=== PATIENT | female | born 1970 | race Hispanic/Latino ===

== ENCOUNTER 2017-10-24 17:31 | Emergency (ER) | payer SELFPAY ==
[2017-10-24] MEDS ORDERED: ONDANSETRON 4 MG/2 ML VIAL ONE (18:32)
[2017-10-24] MEDS ORDERED: LOPERAMIDE HCL 2 MG CAPSULE ONE (18:32)
[2017-10-24] MEDS ORDERED: NA CHLORIDE 0.9% 1,000 ML ONE (18:33)
[2017-10-24 19:10] LABS: Urine Blood NEGATIVE (NEG); Urine Glucose NEGATIVE (NEG); Urine Protein TRACE (NEG); Urine Specific Gravity 1.015 (1.005-1.030)
[2017-10-24 19:17] LABS: Urine Bacteria <20 /HPF (<20); Urine Culture Reflex Order REFLEXED; Urine RBC <5 /HPF (NONE SEEN)
[2017-10-24 19:39] LABS: Absolute Lymphocytes (CBC) 1.1 K/uL (0.7-4.9); Absolute Monocytes 0.6 K/uL (0.1-1.3); Absolute Neutrophil 7.2 K/uL (1.8-8.0); Basophils % 0.2 % (0-1.3); Eosinophils % 0.9 % (0-4.4); Hematocrit 40.5 % (36.0-45.0); Lymphocytes % 12.4 % (15.3-44.8); MCH 29.7 pg (27.0-35.0); MCV 88.3 fL (80-100); MPV 8.3 fL (7.6-11.3); Monocytes % 6.7 % (3.3-12.3); RBC Red Blood Cell Count 4.59 M/uL (3.86-4.86)
[2017-10-24] MEDS ORDERED: IBUPROFEN 400 MG TAB ONE (19:41)
[2017-10-24] MEDS ORDERED: IBUPROFEN 200 MG TAB PO ONE (19:41)
[2017-10-24 19:47] LABS: Bicarbonate 24 mEq/L (21-31); Glucose Level 106 mg/dL (65-120); Lipase 15 U/L (22-51); Potassium 3.6 mEq/L (3.6-5.0); Sodium Level 135 mEq/L (135-145)
[2017-10-24 19:54] LABS: ALT/SGPT 94 IU/L (10-60); AST/SGOT 87 IU/L (10-42); Albumin 3.4 g/dL (3.2-5.5); Alkaline Phosphatase 70 IU/L (42-121); Amylase Level 26 U/L (28-100); BUN Blood Urea Nitrogen 10 mg/dL (6-20); Bilirubin Direct 0.1 mg/dL (0-0.2); Bilirubin Total 0.6 mg/dL (0.3-1.2); Protein, Total 7.4 g/dL (6.0-8.3)
[2017-10-24 20:41] LABS: Blood Morphology Comment NOT SEEN (NOT SEEN); Platelet Estimate ADEQ; Urine White Blood Cell Casts OK
--- NOTE | 2017-10-24 20:47 | ER ---
Nurse's Notes [facility] Name: Alda Maldonado Age: 47 yrs Sex: Female : 1970 Arrival Date: 10/24/2017 Time: 17:34 Bed 13 Private MD: Diagnosis: Other viral enteritis Presentation: 10/24 17:39 Presenting complaint: Patient states: abd pain, back pain, N/V/D since yesterday. la1 Transition of care: patient was not received from another setting of care. Onset of symptoms was October 24, 2017. Initial Sepsis Screen: Does the patient meet any 2 criteria? Temp <36.0*C (96.8*F)) or > 38.3*C (100.4*F). Does the patient have a suspected source of infection? No. Patient's initial sepsis screen is negative. Care prior to arrival: None. 17:39 Method Of Arrival: Ambulatory la1 17:39 Acuity: SHELDON 3 la1 Historical: - Allergies: 17:40 No Known Allergies; la1 - Home Meds: 21:13 Fioricet 50-300-40 mg Oral cap 1 cap every 4 hours [Active]; tl2 - PMHx: 17:40 Migraines; la1 - Immunization history:: Adult Immunizations up to date. - Social history:: Smoking status: Patient/guardian denies using tobacco. - Family history:: not pertinent. - Hospitalizations: : No recent hospitalization is reported. - History obtained from: daughter. Screenin:08 Abuse screen: Denies threats or abuse. Denies injuries from another. Nutritional ph screening: No deficits noted. Tuberculosis screening: No symptoms or risk factors identified. Fall Risk None identified. No fall in past 12 months (0 pts). Assessment: 18:55 General: Appears in no apparent distress. comfortable, well groomed, Behavior is calm, ph cooperative, appropriate for age. Pain: Complains of pain in umbilical area. Neuro: Level of Consciousness is awake, alert, obeys commands, Oriented to person, place, time, situation. Cardiovascular: Capillary refill < 3 seconds Patient's skin is warm and dry. Respiratory: Airway is patent Respiratory effort is even, unlabored. GI: Abdomen is round non-distended, Bowel sounds present X 4 quads. Abd is soft and non tender X 4 quads. Reports diarrhea, nausea, vomiting, since yesterday. Derm: Skin is intact, is healthy with good turgor, Skin is pink, warm \T\ dry. Musculoskeletal: Circulation, motion, and sensation intact. 20:06 Reassessment: Patient appears in no apparent distress at this time. Patient and/or tl2 family updated on plan of care and expected duration. Pain level reassessed. Patient is alert, oriented x 3, equal unlabored respirations, skin warm/dry/pink. Awaiting lab results and further orders. 21:11 Reassessment: Patient appears in no apparent distress at this time. Patient and/or tl2 family updated on plan of care and expected duration. Pain level reassessed. Patient is alert, oriented x 3, equal unlabored respirations, skin warm/dry/pink. Pt verbalized understanding of discharge instructions, need for follow up and prescription usage Patient states feeling better. Vital Signs: 17:40 BP 126 / 88; Pulse 81; Resp 16; Temp 100.0(TE); Pulse Ox 100% on R/A; Weight 58.97 kg; la1 Height 4 ft. 11 in. (149.86 cm); 19:02 BP 125 / 70; Pulse 85; Resp 18; Pulse Ox 98% ; ph 20:05 BP 120 / 69; Pulse 88; Resp 18; Pulse Ox 100% on R/A; tl2 21:11 BP 111 / 74; Pulse 83; Resp 18; Pulse Ox 99% on R/A; Pain 0/10; tl2 17:40 Body Mass Index 26.26 (58.97 kg, 149.86 cm) la1 ED Course: 17:34 Patient arrived in ED. as 17:40 Triage completed. la1 17:40 Arm band placed on right wrist. la1 18:03 Mireya Brambila FNP is PHCP. kav 18:03 Reji Lamb MD is Attending Physician. kav 18:07 Sue Holland, CHRIS is Primary Nurse. ph 19:02 Patient has correct armband on for positive identification. Bed in low position. Call ph light in reach. Side rails up X 1. Pulse ox on. NIBP on. Warm blanket given. 19:20 Inserted saline lock: 22 gauge in left antecubital area, using aseptic technique. Blood tl2 collected. 21:11 No provider procedures requiring assistance completed. tl2 21:12 IV discontinued, intact, bleeding controlled, No redness/swelling at site. Pressure tl2 dressing applied. Administered Medications: 18:55 Drug: NS 0.9% 1000 ml Route: IV; Rate: 1 bolus; Site: right antecubital; ph 21:15 Follow up: IV Status: Completed infusion; IV Intake: 1000ml tl2 18:55 Drug: Imodium A-D 4 mg Route: PO; ph 21:13 Follow up: Response: Marked relief of symptoms tl2 18:55 Drug: Zofran 4 mg Route: IVP; Site: right antecubital; ph 21:14 Follow up: Response: No adverse reaction; Nausea is decreased tl2 19:47 Drug: Ibuprofen 600 mg Route: PO; tl2 21:14 Follow up: Response: No adverse reaction; Pain is decreased tl2 Intake: 21:15 IV: 1000ml; Total: 1000ml. tl2 Outcome: 20:46 Discharge ordered by . khadar 21:12 Discharged to home ambulatory, with family. tl2 21:12 Condition: stable 21:12 Discharge instructions given to patient, family, Instructed on discharge instructions, follow up and referral plans. medication usage, Demonstrated understanding of instructions, follow-up care, medications, Prescriptions given X 1. 21:16 Patient left the ED. tl2 Signatures: Mireya Brambila, SPIRAL WINDING MACHINE HELPER Kaila Sanders Lee, RN RN la1 Sue Holland RN RN Carli Brody RN RN tl2
--- NOTE | 2017-10-24 20:47 | EDPHYS ---
Physician Documentation [facility] Name: Alda Maldonado Age: 47 yrs Sex: Female : 1970 Arrival Date: 10/24/2017 Time: 17:34 Bed 13 Private MD: ED Physician Reji Lamb HPI: 10/24 18:17 This 47 yrs old Female presents to ER via Ambulatory with complaints of kav Abdominal Pain. 18:41 The patient presents with abdominal pain that is diffuse. Onset: The symptoms/episode kav began/occurred acutely, yesterday. The symptoms do not radiate. Associated signs and symptoms: Pertinent positives: diarrhea, fever, nausea, Pertinent negatives: vomiting. The symptoms are described as crampy. Modifying factors: The symptoms are alleviated by nothing, the symptoms are aggravated by food. Severity of pain: At its worst the pain was mild just prior to arrival. The patient has not recently seen a physician. patient presents with c/o diffuse crampy abdominal pain x 2 days with associated frequent diarrhea x 10 today,h/a and nausea. she reports taking no anti-diarrheal or nausea medication. she did take tyleonol \T\ 1700 for c/o h/a. Historical: - Allergies: 17:40 No Known Allergies; la1 - Home Meds: 21:13 Fioricet 50-300-40 mg Oral cap 1 cap every 4 hours [Active]; tl2 - PMHx: 17:40 Migraines; la1 - Immunization history:: Adult Immunizations up to date. - Social history:: Smoking status: Patient/guardian denies using tobacco. - Family history:: not pertinent. - Hospitalizations: : No recent hospitalization is reported. - History obtained from: daughter. ROS: 18:41 Eyes: Negative for injury, pain, redness, and discharge, ENT: Negative for injury, kav pain, and discharge, Neck: Negative for injury, pain, and swelling, Cardiovascular: Negative for chest pain, palpitations, and edema, Respiratory: Negative for shortness of breath, cough, wheezing, and pleuritic chest pain, Back: Negative for injury and pain, : Negative for injury, bleeding, discharge, and swelling, MS/Extremity: Negative for injury and deformity, Skin: Negative for injury, rash, and discoloration, Neuro: Negative for headache, weakness, numbness, tingling, and seizure, Psych: Negative for depression, anxiety, suicide ideation, homicidal ideation, and hallucinations, Allergy/Immunology: Negative for hives, rash, and allergies, Endocrine: Negative for neck swelling, polydipsia, polyuria, polyphagia, and marked weight changes, Hematologic/Lymphatic: Negative for swollen nodes, abnormal bleeding, and unusual bruising. 18:41 Constitutional: Positive for chills, fever, Negative for body aches, fatigue, malaise, weight loss. 18:41 Abdomen/GI: Positive for abdominal pain, nausea, diarrhea, Negative for vomiting, abdominal distension, dysphagia, hematemesis, black/tarry stool, rectal bleeding. Exam: 18:41 Head/Face: Normocephalic, atraumatic. Eyes: Pupils equal round and reactive to light, kav extra-ocular motions intact. Lids and lashes normal. Conjunctiva and sclera are non-icteric and not injected. Cornea within normal limits. Periorbital areas with no swelling, redness, or edema. ENT: Nares patent. No nasal discharge, no septal abnormalities noted. Tympanic membranes are normal and external auditory canals are clear. Oropharynx with no redness, swelling, or masses, exudates, or evidence of obstruction, uvula midline. Mucous membranes moist. Neck: Trachea midline, no thyromegaly or masses palpated, and no cervical lymphadenopathy. Supple, full range of motion without nuchal rigidity, or vertebral point tenderness. No Meningismus. Chest/axilla: Normal chest wall appearance and motion. Nontender with no deformity. No lesions are appreciated. Cardiovascular: Regular rate and rhythm with a normal S1 and S2. No gallops, murmurs, or rubs. Normal PMI, no JVD. No pulse deficits. Respiratory: Lungs have equal breath sounds bilaterally, clear to auscultation and percussion. No rales, rhonchi or wheezes noted. No increased work of breathing, no retractions or nasal flaring. Back: No spinal tenderness. No costovertebral tenderness. Full range of motion. Female : Normal external genitalia. Skin: Warm, dry with normal turgor. Normal color with no rashes, no lesions, and no evidence of cellulitis. MS/ Extremity: Pulses equal, no cyanosis. Neurovascular intact. Full, normal range of motion. Neuro: Awake and alert, GCS 15, oriented to person, place, time, and situation. Cranial nerves II-XII grossly intact. Motor strength 5/5 in all extremities. Sensory grossly intact. Cerebellar exam normal. Normal gait. Psych: Awake, alert, with orientation to person, place and time. Behavior, mood, and affect are within normal limits. 18:41 Abdomen/GI: Inspection: abdomen appears normal, Bowel sounds: active, Palpation: soft, mild abdominal tenderness, in all quadrants. Vital Signs: 17:40 BP 126 / 88; Pulse 81; Resp 16; Temp 100.0(TE); Pulse Ox 100% on R/A; Weight 58.97 kg; la1 Height 4 ft. 11 in. (149.86 cm); 19:02 BP 125 / 70; Pulse 85; Resp 18; Pulse Ox 98% ; ph 20:05 BP 120 / 69; Pulse 88; Resp 18; Pulse Ox 100% on R/A; tl2 21:11 BP 111 / 74; Pulse 83; Resp 18; Pulse Ox 99% on R/A; Pain 0/10; tl2 17:40 Body Mass Index 26.26 (58.97 kg, 149.86 cm) la1 MDM: 18:03 Patient medically screened. kav 18:41 Data reviewed: vital signs, nurses notes. kav 20:43 Data reviewed: lab test result(s). 10/24 18:19 Order name: Amylase, Serum; Complete Time: 20:43 [facility] 10/24 18:19 Order name: Basic Metabolic Panel; Complete Time: 20:43 [facility] 10/24 18:19 Order name: CBC with Diff; Complete Time: 20:43 v 10/24 18:19 Order name: Creatinine for Radiology; Complete Time: 19:51 kav 10/24 18:19 Order name: Hepatic Function; Complete Time: 20:43 [facility] 10/24 18:19 Order name: Lipase; Complete Time: 20:43 kav 10/24 18:19 Order name: Urine Microscopic Only; Complete Time: 19:51 kav 10/24 18:58 Order name: Urine Dipstick--Ancillary (enter results); Complete Time: 19:51 10/24 18:58 Order name: Urine --Ancillary (enter results); Complete Time: 19:51 eb 10/24 19:18 Order name: Urine Culture EDNY 10/24 19:46 Order name: CBC Smear Scan; Complete Time: 20:43 EDNY 10/24 18:19 Order name: IV Saline Lock; Complete Time: 18:55 kav 10/24 18:19 Order name: Labs collected and sent; Complete Time: 18:55 kav 10/24 18:19 Order name: Urine Dipstick-Ancillary (obtain specimen); Complete Time: 18:28 kav 10/24 19:05 Order name: Labs - recollect needed; Complete Time: 19:25 em1 10/24 19:52 Order name: VS Recheck; Complete Time: 20:05 kav Administered Medications: 18:55 Drug: NS 0.9% 1000 ml Route: IV; Rate: 1 bolus; Site: right antecubital; ph 21:15 Follow up: IV Status: Completed infusion; IV Intake: 1000ml tl2 18:55 Drug: Imodium A-D 4 mg Route: PO; ph 21:13 Follow up: Response: Marked relief of symptoms tl2 18:55 Drug: Zofran 4 mg Route: IVP; Site: right antecubital; ph 21:14 Follow up: Response: No adverse reaction; Nausea is decreased tl2 19:47 Drug: Ibuprofen 600 mg Route: PO; tl2 21:14 Follow up: Response: No adverse reaction; Pain is decreased tl2 Disposition: 10/24/17 20:46 Discharged to Home. Impression: Other viral enteritis. - Condition is Stable. - Discharge Instructions: Food Choices to Help Relieve Diarrhea, Adult, Viral Gastroenteritis, [id number], Diarrhea, [id number]. - Prescriptions for Zofran 4 mg Oral Tablet - take 1 tablet by ORAL route every 12 hours As needed; 6 tablet. - Medication Reconciliation Form, Thank You Letter, Antibiotic Education, Prescription Opioid Use form. - Follow up: Private Physician; Reason: If symptoms return, Recheck today's complaints, Continuance of care, Re-evaluation by your physician. - Problem is new. - Symptoms have improved. - Notes: Over The Counter Imodium as needed and as directed for diarrhea ensure adequate hydration Signatures: Dispatcher [employer] EDNY Mireya Brambila, BRONZER BRONZER Jj Lazcano em1 Crispin Gilmore, RN RN la1 Sue Holland, RN RN ph Carli Brody RN RN tl2 Corrections: (The following items were deleted from the chart) 18:56 18:20 Creatinine for Radiology+C.LAB.BRZ ordered. EDMS EDMS
== END 2017-10-24 21:16 | disposition home or self-care (01) ==
LOC: ER 17:31
DX: A08.4 Viral intestinal infection, unspecified (principal); Z88.6 Allergy status to analgesic agent
CPT/HCPCS: 36415; 80048; 80076; 81003; 81015; 81025; 82150; 83690; 85025; 87086; 87088; 96361; 96374; 99284; J2405; J7030

== ENCOUNTER 2018-03-14 00:50 | Emergency (ER) | payer SELFPAY ==
--- NOTE | 2018-03-14 01:39 | EDPHYS ---
Physician Documentation [facility] Name: Alda Maldonado Age: 48 yrs Sex: Female : 1970 Arrival Date: 03/14/2018 Time: 00:54 Bed 5 Private MD: ED Physician Reji Lamb HPI: 03/14 01:31 This 48 yrs old Female presents to ER via Ambulatory with complaints of Rash. cp 01:31 The patient's rash thought to be caused by an unknown cause. The rash is located on the cp chest, left arm and neck. The rash can be described as erythematous, urticarial. Onset: The symptoms/episode began/occurred 1 week(s) ago. Associated signs and symptoms: Pertinent positives: burning sensation, itching, Pertinent negatives: difficulty breathing, fever, swelling of lips, swelling of throat, swelling of tongue, wheezing. Severity of symptoms: in the emergency department the symptoms are unchanged. Treatment given at home: Benadryl. 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 - Social history:: Smoking status: Patient/guardian denies using tobacco. - Ebola Screening: : No symptoms or risks identified at this time. ROS: 01:32 Eyes: Negative for injury, pain, redness, and discharge. cp 01:32 Constitutional: Negative for body aches, chills, fever, poor PO intake. 01:32 ENT: Negative for drainage from ear(s), ear pain, sore throat, difficulty swallowing, difficulty handling secretions. 01:32 Cardiovascular: Negative for chest pain, palpitations. 01:32 Respiratory: Negative for cough, shortness of breath, wheezing. 01:32 : Negative for urinary symptoms. 01:32 Skin: Positive for rash, of the neck and left arm and chest. 01:32 All other systems are negative. Exam: 01:34 Head/Face: Normocephalic, atraumatic. cp 01:34 Constitutional: The patient appears in no acute distress, alert, awake, non-toxic, well developed, well nourished. 01:34 Eyes: Periorbital structures: appear normal, Conjunctiva: normal, no exudate, no injection, Lids and lashes: appear normal, bilaterally. 01:34 ENT: External ear(s): are unremarkable, Nose: is normal, Mouth: Lips: moist, Oral mucosa: moist, Posterior pharynx: is normal, airway is patent. 01:34 Chest/axilla: Palpation: is normal. 01:34 Cardiovascular: Rate: normal, Rhythm: regular. 01:34 Respiratory: the patient does not display signs of respiratory distress, Respirations: normal, no use of accessory muscles, no retractions, no splinting, no tachypnea, labored breathing, is not present, Breath sounds: are clear throughout, no decreased breath sounds, no stridor, no wheezing. 01:34 Abdomen/GI: Inspection: abdomen appears normal. 01:34 Skin: consistent with urticaria, on the neck and left arm and chest. Vital Signs: 01:07 BP 145 / 96; Pulse 88; Resp 16; Temp 98.7(O); Pulse Ox 96% on R/A; Weight 63.5 kg; tl2 Height 4 ft. 11 in. (149.86 cm); Pain 0/10; 01:07 Body Mass Index 28.28 (63.50 kg, 149.86 cm) tl2 MDM: 01:10 Patient medically screened. cp 01:35 Differential diagnosis: allergic reaction, contact dermatitis, cellulitis. cp 01:37 Data reviewed: vital signs, nurses notes. cp 01:37 Counseling: I had a detailed discussion with the patient and/or guardian regarding: the cp historical points, exam findings, and any diagnostic results supporting the discharge/admit diagnosis, the need for outpatient follow up, a family practitioner, to return to the emergency department if symptoms worsen or persist or if there are any questions or concerns that arise at home. Administered Medications: No medications were administered Disposition: 03/14/18 01:38 Discharged to Home. Impression: Urticaria, unspecified. - Condition is Stable. - Discharge Instructions: Hives. - Prescriptions for Pepcid 20 mg Oral Tablet - take 1 tablet by ORAL route every 12 hours for 10 days; 20 tablet. Triamcinolone Acetonide 0.5 % Topical Cream - apply 1 application by TOPICAL route 2 times per day As needed apply to areas of rash except face as directed; 1 tube. Prednisone 20 mg Oral Tablet - take 2 tablet by ORAL route once daily for 5 days; 10 tablet. - Medication Reconciliation Form, Thank You Letter, Antibiotic Education, Prescription Opioid Use form. - Follow up: Private Physician; When: 5 - 6 days; Reason: rash continues. - Problem is new. - Symptoms are unchanged. Addendum: 03/20/2018 12:05 Co-signature as Attending Physician, Reji Lamb MD Available for consultation at p s1 all times. . Signatures: Meagan Kraft RN RN tl1 Candido Hernandez PA PA cp Carli Brody RN RN tl2 Reji Lamb MD MD ps1 Corrections: (The following items were deleted from the chart) 03/14 01:46 01:38 03/14/2018 01:38 Discharged to Home. Impression: Urticaria, unspecified. tl1 Condition is Stable. Forms are Medication Reconciliation Form, Thank You Letter, Antibiotic Education, Prescription Opioid Use. Follow up: Private Physician; When: 5 - 6 days; Reason: rash continues. Problem is new. Symptoms are unchanged. cp
--- NOTE | 2018-03-14 01:39 | ER ---
Nurse's Notes [facility] Name: Alda Maldonado Age: 48 yrs Sex: Female : 1970 Arrival Date: 03/14/2018 Time: 00:54 Bed 5 Private MD: Diagnosis: Urticaria, unspecified Presentation: 03/14 01:05 Presenting complaint: Patient states: Rash for 1 week on left arm, neck, and chest. tl2 Reports itching. 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 Transition of care: patient was not received from another setting of care. Onset of symptoms was March 07, 2018. Risk Assessment: Do you want to hurt yourself or someone else? Patient reports no desire to harm self or others. Initial Sepsis Screen: Does the patient meet any 2 criteria? No. Patient's initial sepsis screen is negative. Does the patient have a suspected source of infection? No. Patient's initial sepsis screen is negative. Care prior to arrival: Medication(s) given: benadryl. 01:05 Method Of Arrival: Ambulatory tl2 01:05 Acuity: SHELDON 4 tl2 Triage Assessment: 01:07 General: Appears in no apparent distress. uncomfortable, Behavior is calm, cooperative, tl2 appropriate for age. Pain: Denies pain. Neuro: Level of Consciousness is awake, alert, obeys commands, Oriented to person, place, time, situation. Respiratory: Airway is patent Respiratory effort is even, unlabored, Respiratory pattern is regular, symmetrical. Derm: Skin is pink, warm \T\ dry. Rash noted that is itchy, red, on left arm, neck, chest. 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 - Social history:: Smoking status: Patient/guardian denies using tobacco. - Ebola Screening: : No symptoms or risks identified at this time. Screenin:09 Abuse screen: Denies threats or abuse. Nutritional screening: No deficits noted. tl2 Tuberculosis screening: No symptoms or risk factors identified. Fall Risk None identified. Assessment: 01:43 General: Appears in no apparent distress. Behavior is calm, cooperative, appropriate tl1 for age. Pain: Denies pain. Neuro: Level of Consciousness is awake, alert, obeys commands, Oriented to person, place, time, situation. Cardiovascular: Denies chest pain. Respiratory: Airway is patent Trachea midline Respiratory effort is even, unlabored, Breath sounds are clear bilaterally. GI: Abdomen is non-distended, Abd is soft and non tender X 4 quads. : No signs and/or symptoms were reported regarding the genitourinary system. EENT: No signs and/or symptoms were reported regarding the EENT system. Derm: Rash noted that is itchy, red, urticaria, on neck and left arm and chest Reports itching. Musculoskeletal: No signs and/or symptoms reported regarding the musculoskeletal system. Vital Signs: 01:07 BP 145 / 96; Pulse 88; Resp 16; Temp 98.7(O); Pulse Ox 96% on R/A; Weight 63.5 kg; tl2 Height 4 ft. 11 in. (149.86 cm); Pain 0/10; 01:07 Body Mass Index 28.28 (63.50 kg, 149.86 cm) tl2 ED Course: 00:54 Patient arrived in ED. es 01:06 Triage completed. tl2 01:07 Arm band placed on right wrist. tl2 01:09 Patient has correct armband on for positive identification. Bed in low position. Call tl2 light in reach. Side rails up X 1. 01:10 Candido Hernandez PA is PHCP. cp 01:10 Reji Lamb MD is Attending Physician. cp 01:45 No provider procedures requiring assistance completed. Patient did not have IV access tl1 during this emergency room visit. 01:46 Meagan Kraft, CHRIS is Primary Nurse. tl1 Administered Medications: No medications were administered Outcome: 01:38 Discharge ordered by . cp 01:45 Discharged to home ambulatory, with family. tl1 01:45 Condition: good 01:45 Discharge instructions given to patient, family, Instructed on discharge instructions, follow up and referral plans. medication usage, Demonstrated understanding of instructions, follow-up care, medications, Prescriptions given X 3. 01:46 Patient left the ED. tl1 Signatures: [place], Shelbie es [place], Meagan, RN RN tl1 Candido Hernandez PA PA cp Knox, Taylor, RN RN tl2
== END 2018-03-14 01:46 | disposition home or self-care (01) ==
LOC: ER 00:50
DX: L50.9 Urticaria, unspecified (principal)
CPT/HCPCS: 99282

== ENCOUNTER 2019-03-10 22:35 | Emergency (ER) | payer SELFPAY ==
[2019-03-10 23:31] LABS: Urine Specific Gravity 1.025 (1.005-1.030)
[2019-03-10 23:32] LABS: Urine Blood NEGATIVE (NEG); Urine Glucose NEGATIVE (NEG); Urine Protein NEGATIVE (NEG); Urine Specific Gravity 1.025 (1.005-1.030)
[2019-03-10 23:33] LABS: Calcium Oxalate Crystals- Ur MANY (NONE SEEN); Urine Bacteria <20 /HPF (<20); Urine Culture Reflex Order REFLEXED; Urine RBC NONE SEEN /HPF (NONE SEEN)
[2019-03-10 23:38] LABS: Absolute Lymphocytes (CBC) 3.3 K/uL (0.7-4.9); Basophils % 0.5 % (0-1.3); Hematocrit 41.5 % (36.0-45.0); Lymphocytes % 30.7 % (15.3-44.8); MPV 8.8 fL (7.6-11.3); RBC Red Blood Cell Count 4.64 M/uL (3.86-4.86)
[2019-03-10 23:51] LABS: BUN Blood Urea Nitrogen 18 mg/dL (7-18); Bicarbonate 29 mmol/L (21-32); Glucose Level 97 mg/dL (74-106); Potassium 3.9 mmol/L (3.5-5.1); Sodium Level 142 mmol/L (136-145)
--- NOTE | 2019-03-11 02:39 | ER ---
Nurse's Notes [facility] [place] Name: Alda Maldonado Age: 49 yrs Sex: Female : 1970 Arrival Date: 03/10/2019 Time: 22:40 Bed 7 Private MD: Diagnosis: Lower abdominal pain, unspecified Presentation: 03/10 22:44 Presenting complaint: Patient states: LLQ abdominal pain since yesterday; States "I can lp1 feel a ball there"; Denies any N/V/D. Transition of care: patient was not received from another setting of care. Onset of symptoms was March 10, 2019. Risk Assessment: Do you want to hurt yourself or someone else? Patient reports no desire to harm self or others. Initial Sepsis Screen: Does the patient meet any 2 criteria? No. Patient's initial sepsis screen is negative. Does the patient have a suspected source of infection? No. Patient's initial sepsis screen is negative. Care prior to arrival: None. 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 - Social history:: Smoking status: Patient/guardian denies using tobacco. - Ebola Screening: : No symptoms or risks identified at this time. Screenin:11 Abuse screen: Denies threats or abuse. Denies injuries from another. Nutritional ak1 screening: No deficits noted. Tuberculosis screening: No symptoms or risk factors identified. Fall Risk None identified. Assessment: 23:11 General: Appears in no apparent distress. Behavior is calm, cooperative, appropriate ak1 for age. Pain: Complains of pain in left lower quadrant Pain began 2-3 days ago. Neuro: No deficits noted. Cardiovascular: No deficits noted. Respiratory: No deficits noted. GI: Abdomen is round non-distended, Bowel sounds present X 4 quads. Abd is soft and non tender X 4 quads. Reports lower abdominal pain. : No signs and/or symptoms were reported regarding the genitourinary system. EENT: No signs and/or symptoms were reported regarding the EENT system. Derm: No signs and/or symptoms reported regarding the dermatologic system. Musculoskeletal: No signs and/or symptoms reported regarding the musculoskeletal system. 23:45 Reassessment: pt describe pain as cramping in lower left quadrant. ak1 Vital Signs: 22:43 BP 138 / 95; Pulse 73; Resp 18; Temp 97.6(O); Pulse Ox 98% on R/A; Weight 63.05 kg (R); lp1 Height 4 ft. 11 in. (149.86 cm); Pain 4/10; 23:45 BP 134 / 84; Pulse 76; Resp 18; Pulse Ox 100% on R/A; ak1 03/11 00:42 BP 155 / 84; Pulse 81; Resp 16; Pulse Ox 98% on R/A; ak1 01:16 BP 152 / 94; Pulse 77; Resp 16; Pulse Ox 98% on R/A; ak1 03/10 22:43 Body Mass Index 28.07 (63.05 kg, 149.86 cm) lp1 ED Course: 03/10 22:40 Patient arrived in ED. cf2 22:42 Priti Perez FNP-C is PHCP. kb 22:42 Sridhar Garza MD is Attending Physician. kb 22:45 Triage completed. lp1 22:45 Arm band placed on. lp1 23:11 Sheba Moss, RN is Primary Nurse. ak1 23:11 Patient has correct armband on for positive identification. Placed in gown. Bed in low ak1 position. Call light in reach. Side rails up X 1. Adult w/ patient. Pulse ox on. NIBP on. 23:21 Urine Microscopic Only Sent. ak1 23:21 Inserted saline lock: 20 gauge in right antecubital area, using aseptic technique. oe Blood collected. 03/11 00:[address] via wheelchair. eh 00:33 CT completed. Patient tolerated procedure well. Patient moved back from CT. eh 01:17 No provider procedures requiring assistance completed. ak1 01:26 IV discontinued, intact, bleeding controlled, No redness/swelling at site. Pressure ak1 dressing applied. 04:08 CT Abd/Pelvis - IV Contrast Only In Process Unspecified. EDMS Administered Medications: No medications were administered Outcome: 01:19 Discharge ordered by . oneil 01:25 Discharged to home ambulatory, with family. ak1 01:25 Condition: stable 01:25 Discharge instructions given to patient, family, Instructed on discharge instructions, follow up and referral plans. no drinking with medication, no driving heavy equipment, medication usage, Demonstrated understanding of instructions, follow-up care, medications, Prescriptions given X 1. 01:29 Patient left the ED. ak1 Signatures: Dispatcher [employer] EDMS Priti Perez, POURER METAL-C POURER METAL-Kodak Mckeon Laura, RN RN lp1 Sheba Moss RN RN ak1 James Flores Celesta 2
--- NOTE | 2019-03-11 02:42 | EDPHYS ---
Physician Documentation [facility] Name: Alda Maldonado Age: 49 yrs Sex: Female : 1970 Arrival Date: 03/10/2019 Time: 22:40 Bed 7 Private MD: ED Physician Sridhar Garza HPI: 03/11 01:18 This 49 yrs old Female presents to ER via Ambulatory with complaints of kb Abdominal Pain. 01:18 The patient presents with abdominal pain in the left lower quadrant. Onset: The kb symptoms/episode began/occurred yesterday. The symptoms do not radiate. Associated signs and symptoms: none. The symptoms are described as constant. Modifying factors: The symptoms are alleviated by nothing, the symptoms are aggravated by nothing. Severity of pain: At its worst the pain was mild in the emergency department the pain is unchanged. The patient has not experienced similar symptoms in the past. The patient has not recently seen a physician. Pt reports she noticed a "ball" in LLQ yesterday with pain. No tenderness upon palpation.. 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 - Social history:: Smoking status: Patient/guardian denies using tobacco. - Ebola Screening: : No symptoms or risks identified at this time. ROS: 03/11 01:17 Constitutional: Negative for fever, chills, and weight loss, ENT: Negative for injury, kb pain, and discharge, Neck: Negative for injury, pain, and swelling, Cardiovascular: Negative for chest pain, palpitations, and edema, Respiratory: Negative for shortness of breath, cough, wheezing, and pleuritic chest pain, Back: Negative for injury and pain, : Negative for injury, bleeding, discharge, and swelling, MS/Extremity: Negative for injury and deformity, Skin: Negative for injury, rash, and discoloration, Neuro: Negative for headache, weakness, numbness, tingling, and seizure. Abdomen/GI: Positive for abdominal pain, "ball" in LLQ. Exam: 01:17 Constitutional: This is a well developed, well nourished patient who is awake, alert, kb and in no acute distress. Head/Face: Normocephalic, atraumatic. Chest/axilla: Normal chest wall appearance and motion. Nontender with no deformity. No lesions are appreciated. Cardiovascular: Regular rate and rhythm with a normal S1 and S2. No gallops, murmurs, or rubs. Normal PMI, no JVD. No pulse deficits. Respiratory: Lungs have equal breath sounds bilaterally, clear to auscultation and percussion. No rales, rhonchi or wheezes noted. No increased work of breathing, no retractions or nasal flaring. Abdomen/GI: Soft, non-tender, with normal bowel sounds. No distension or tympany. No guarding or rebound. No evidence of tenderness throughout. Back: No spinal tenderness. No costovertebral tenderness. Full range of motion. Skin: Warm, dry with normal turgor. Normal color with no rashes, no lesions, and no evidence of cellulitis. MS/ Extremity: Pulses equal, no cyanosis. Neurovascular intact. Full, normal range of motion. Neuro: Awake and alert, GCS 15, oriented to person, place, time, and situation. Cranial nerves II-XII grossly intact. Motor strength 5/5 in all extremities. Sensory grossly intact. Cerebellar exam normal. Normal gait. Vital Signs: 03/10 22:43 BP 138 / 95; Pulse 73; Resp 18; Temp 97.6(O); Pulse Ox 98% on R/A; Weight 63.05 kg (R); lp1 Height 4 ft. 11 in. (149.86 cm); Pain 4/10; 23:45 BP 134 / 84; Pulse 76; Resp 18; Pulse Ox 100% on R/A; ak1 03/11 00:42 BP 155 / 84; Pulse 81; Resp 16; Pulse Ox 98% on R/A; ak1 01:16 BP 152 / 94; Pulse 77; Resp 16; Pulse Ox 98% on R/A; ak1 03/10 22:43 Body Mass Index 28.07 (63.05 kg, 149.86 cm) lp1 MDM: 03/10 22:42 Patient medically screened. kb 03/11 01:17 Data reviewed: vital signs, nurses notes. Data interpreted: Pulse oximetry: on room air kb is 98 %. Interpretation: normal. Counseling: I had a detailed discussion with the patient and/or guardian regarding: the historical points, exam findings, and any diagnostic results supporting the discharge/admit diagnosis, lab results, radiology results, the need for outpatient follow up, an OB/Gyne specialist, to return to the emergency department if symptoms worsen or persist or if there are any questions or concerns that arise at home. 03/10 23:05 Order name: Urine Microscopic Only; Complete Time: 23:36 rr5 03/10 23:07 Order name: Basic Metabolic Panel; Complete Time: 23:54 kb 03/10 23:07 Order name: CBC with Diff; Complete Time: 00:07 kb 03/10 23:10 Order name: Urine Dipstick--Ancillary (enter results); Complete Time: 23:36 ar5 03/10 23:12 Order name: Urine --Ancillary (enter results); Complete Time: 23:36 ar5 03/10 23:38 Order name: Urine Culture [facility] 03/10 23:05 Order name: Urine Dipstick-Ancillary (obtain specimen); Complete Time: 23:06 rr5 03/10 23:05 Order name: Urine Test (obtain specimen); Complete Time: 23:06 rr5 03/10 23:07 Order name: IV Saline Lock; Complete Time: 23:21 kb 03/10 23:07 Order name: Labs collected and sent; Complete Time: 23:21 kb 03/10 23:07 Order name: CT Abd/Pelvis - IV Contrast Only kb Administered Medications: No medications were administered Disposition: 01:42 Co-signature as Attending Physician, Sridhar Garza MD I agree with the assessment and kdr plan of care. Disposition: 03/11/19 01:19 Discharged to Home. Impression: Lower abdominal pain, unspecified. - Condition is Stable. - Discharge Instructions: Abdominal Pain, Adult, Juiz-av-Fkeh, Ovarian Cyst, Vivm-pe-Rodp. - Prescriptions for Diclofenac Sodium 75 mg Oral Tablet, Delayed Release (E.C.) - take 1 tablet by ORAL route 2 times per day As needed; 30 tablet. - Medication Reconciliation Form, Thank You Letter, Antibiotic Education, Prescription Opioid Use form. - Follow up: Emergency Department; When: As needed; Reason: Worsening of condition. Follow up: Private Physician; When: 2 - 3 days; Reason: Recheck today's complaints, Continuance of care, Re-evaluation by your physician. Signatures: Dispatcher [employer] EDPriti Archer, ANIBAL-Korey OCHOAP-Sridhar Gandara MD MD kdr Pena, Laura, RN RN lp1 Sheba Moss RN RN ak1 Nguyễn Coronel RN RN rr5 Corrections: (The following items were deleted from the chart) 01:18 01:17 Abdomen/GI: Positive for abdominal pain, lump in LLQ, kb kb 01:29 01:19 03/11/2019 01:19 Discharged to Home. Impression: Lower abdominal pain, ak1 unspecified. Condition is Stable. Forms are Medication Reconciliation Form, Thank You Letter, Antibiotic Education, Prescription Opioid Use. Follow up: Emergency Department; When: As needed; Reason: Worsening of condition. Follow up: Private Physician; When: 2 - 3 days; Reason: Recheck today's complaints, Continuance of care, Re-evaluation by your physician. kb
--- NOTE | 2019-03-11 11:39 | RAD REPORT ---
EXAM DESCRIPTION: CT - Abdomen Pelvis W Contrast - 03/11/2019 3:19 am CLINICAL HISTORY: 49 years Female Left lower quadrant abdominal pain. TECHNIQUE: Contiguous axial images obtained through the abdomen and pelvis following intravenous con trast administration. Coronal and sagittal reformatted images provided. This CT exam was performed according to our departmental dose-optimization program, which includes on e or more of the following dose reduction techniques: automated exposure control, adjustment of the m A and/or kV according to patient size, and/or use of iterative reconstruction technique. COMPARISON: No prior exams provided for comparison. FINDINGS: The uterus is surgically absent. 3.9 cm structure in the left lower quadrant most likely r epresents the left ovary. No right adnexal mass. Mild diffuse colonic constipation with scattered colonic diverticuli. No bowel inflammation, obstruct ion, pneumatosis, free intraperitoneal air, abscess, or ascites. Normal appendix. Steatosis of the liver without focal lesion. The lung bases, biliary tree, gallbladder, pancreas, spleen, adrenal glands, left kidney, and urinary bladder are normal. Small right renal cyst. No abdominal aortic aneurysm or retroperitoneal hemorrhage. No abdominal or pelvic lymphadenopathy. N o acute osseous abnormality. IMPRESSION: 3.9 cm structure in the left lower quadrant could represent the normal left ovary howeve r correlation with surgical history is recommended as the uterus is surgically absent. Mild colonic constipation without bowel inflammation or obstruction. Steatosis of the liver. Electronically signed by: Patti Li MD 03/11/2019 12:58 AM CDT Due to temporary technical issues with the PACS/Fluency reporting system, reports are being signed by the in house radiologist as a courtesy to ensure prompt reporting. The interpreting radiologist is f ully responsible for the content of the report.
== END 2019-03-11 01:29 | disposition home or self-care (01) ==
LOC: ER 22:35
DX: R10.30 Lower abdominal pain, unspecified (principal)
CPT/HCPCS: 36415; 74177; 80048; 81003; 81015; 81025; 85025; 87086; 87088; 99284; Q9967

== ENCOUNTER 2023-01-09 13:43 | Emergency (ER) | payer SELFPAY ==
--- OUTSIDE RECORDS SUMMARY | 2023-01-09 13:45 | XMS REPORT | Continuity of Care Document ---
:1970 Author Organization [facility] t Address [address] [place] [address] Care Team Providers Name Role Phone TORI THRSAHER Attending Clinician Unavailable Problems This patient has no known problems. Allergies, Adverse Reactions, Alerts Allergy Allergy Status Severity Reaction(s) Onset Inactive Treating Comm ents Source Name Type Date Date Clinician NO KNOWN Drug Active [facility] ALLERGIE Class [facility] Medications This patient has no known medications. Procedures This patient has no known procedures. Encounters Start End Encounter Admission Attending Care Care Encounter Source Date/Time Date/Time Type Type Clinicians Facility Department ID 2023-01-08 2023-01-08 Outpatient [facility] SFA [id number] Phillip 17:37:22 17:37:22 [id number] [facility] 2020-06-15 2020-06-15 Outpatient Natan THRASHER [facility] [id number] [facility] 11:00:00 11:00:[id number] [facility] 2020-06-15 2020-06-15 [id number] [facility] 11:00:00 11:00:[address] [facility] Results This patient has no known results.
[2023-01-09 14:32] LABS: Absolute Lymphocytes (CBC) 2.7 K/uL (0.7-4.9); Hematocrit 41.4 % (36.0-45.0); Lymphocytes % 37.7 % (15.3-44.8); MCV 87.7 fL (80-100); MPV 7.8 fL (7.6-11.3); RBC Red Blood Cell Count 4.72 M/uL (3.86-4.86)
[2023-01-09] MEDS ORDERED: HYDROMORPHONE HCL 1 MG/ML INJ ONE (14:32)
[2023-01-09] MEDS ORDERED: ONDANSETRON 4 MG/2 ML VIAL ONE (14:32)
[2023-01-09 14:48] LABS: Albumin 4.2 g/dL (3.4-5.0); Bilirubin Total 0.6 mg/dL (0.2-1.0); Potassium 3.4 mEq/L (3.5-5.1); Protein, Total 7.6 g/dL (6.4-8.2)
--- NOTE | 2023-01-09 15:13 | RAD REPORT ---
EXAM DESCRIPTION: CT - Head Brain Wo Cont - 01/09/2023 2:14 pm CLINICAL HISTORY: HEADACHE COMPARISON: No comparisons TECHNIQUE: Noncontrast head CT images were obtained without IV contrast. Multiplanar reformats were generated and reviewed. All CT scans are performed using dose optimization technique as appropriate and may include automated exposure control or mA/KV adjustment according to patient size. FINDINGS: No intracranial hemorrhage, mass, or edema. Midline structures are unremarkable. Normal ventricular caliber for age. Owusu-white matter differentiation is preserved, without evidence of acute infarct. No abnormal extra- axial fluid collections. Mastoid air cells and visualized portions of the paranasal sinuses are clear. No acute bony findings. IMPRESSION: No evidence of an acute intracranial process.
--- NOTE | 2023-01-09 15:19 | EDPHYS ---
Physician Documentation [facility] Name: Alda Maldonado Age: 52 yrs Sex: Female : 1970 Arrival Date: 01/09/2023 Time: 13:43 Bed 17 Private MD: ED Physician Bhavana Brooks HPI: 01/09 14:11 This 52 yrs old Female presents to ER via Ambulatory with complaints of sp3 Headache. 14:11 52-year-old female with longstanding history of migraine headaches now presents to the sp3 ED with chief complaint headache for 3 days not resolved with sumatriptan. She denies any fever, neck pain, facial pain, trauma, known sick contacts, URI symptoms, chest pain, back pain, shortness of breath, abdominal pain, vomiting or diarrhea, rash, travel history, or any other signs or symptoms on ROS at this time. Patient does endorse nausea. She states that this feels like her migraines but this 1 is a little bit more severe and it is not resolved with her normal sumatriptan dosing. Her last visit here for migraine headache was over 6 years ago.. Historical: - PMHx: 13:54 Migraines; os - Immunization history:: Adult Immunizations up to date. - Social history:: Smoking status: Patient denies any tobacco usage or history of. ROS: 14:12 Constitutional: Negative for fever, chills, and weight loss, Eyes: Negative for injury, sp3 pain, redness, and discharge, ENT: Negative for injury, pain, and discharge, Neck: Negative for injury, pain, and swelling, Cardiovascular: Negative for chest pain, palpitations, and edema, Respiratory: Negative for shortness of breath, cough, wheezing, and pleuritic chest pain, Back: Negative for injury and pain, MS/Extremity: Negative for injury and deformity, Skin: Negative for injury, rash, and discoloration, Psych: Negative for depression, anxiety, suicide ideation, homicidal ideation, and hallucinations, Allergy/Immunology: Negative for hives, rash, and allergies, Endocrine: Negative for neck swelling, polydipsia, polyuria, polyphagia, and marked weight changes, Hematologic/Lymphatic: Negative for swollen nodes, abnormal bleeding, and unusual bruising. 14:12 All other systems are negative. Exam: 14:12 Constitutional: This is a well developed, well nourished patient who is awake, alert, sp3 and in no acute distress. Head/Face: Normocephalic, atraumatic. Eyes: Pupils equal round and reactive to light, extra-ocular motions intact. Lids and lashes normal. Conjunctiva and sclera are non-icteric and not injected. Cornea within normal limits. Periorbital areas with no swelling, redness, or edema. ENT: Nares patent. No nasal discharge, no septal abnormalities noted. External auditory canals are clear. Oropharynx with no redness, swelling, or masses, exudates, or evidence of obstruction, uvula midline. Mucous membranes moist. Neck: Trachea midline, no thyromegaly or masses palpated, and no cervical lymphadenopathy. Supple, full range of motion without nuchal rigidity, or vertebral point tenderness. No Meningismus. Chest/axilla: Normal chest wall appearance and motion. Nontender with no deformity. No lesions are appreciated. Cardiovascular: Regular rate and rhythm with a normal S1 and S2. No gallops, murmurs, or rubs. Normal PMI, no JVD. No pulse deficits. Respiratory: Lungs have equal breath sounds bilaterally, clear to auscultation and percussion. No rales, rhonchi or wheezes noted. No increased work of breathing, no retractions or nasal flaring. Abdomen/GI: Soft, non-tender, with normal bowel sounds. No distension or tympany. No guarding or rebound. No evidence of tenderness throughout. Back: No spinal tenderness. No costovertebral tenderness. Full range of motion. Skin: Warm, dry with normal turgor. Normal color with no rashes, no lesions, and no evidence of cellulitis. MS/ Extremity: Pulses equal, no cyanosis. Neurovascular intact. Full, normal range of motion. Neuro: Awake and alert, GCS 15, oriented to person, place, time, and situation. Cranial nerves II-XII grossly intact. Motor strength 5/5 in all extremities. Sensory grossly intact. Cerebellar exam normal. Normal gait. Psych: Awake, alert, with orientation to person, place and time. Behavior, mood, and affect are within normal limits. 14:14 Neuro: Patient with mild photophobia. Patient can fully move her neck without any sp3 difficulty and neurological exam is completely normal.. Vital Signs: 13:51 BP 162 / 112; Pulse 104; Resp 16; Temp 98.4; Pulse Ox 100% on R/A; Weight 62.14 kg; os 14:33 BP 152 / 92; Pulse 106; Resp 18; Pulse Ox 98% on R/A; Pain 10/10; ld1 15:32 BP 149 / 86; Pulse 95; Resp 18; Pulse Ox 100% on R/A; Pain 0/10; ld1 14:33 Pain Scale: Adult ld1 15:32 Pain Scale: Adult ld1 MDM: 14:04 Patient medically screened. sp3 14:15 Data reviewed: vital signs, nurses notes, lab test result(s), radiologic studies. ED sp3 course: 52-year-old female with likely migraine headache exacerbation not resolved with her normal medications. I am not highly suspicious for meningitis, intracranial hemorrhage, infection or sepsis, or any other signs or symptoms critical pathology at this time. Will obtain CT scan of the head due to the severity of her headache, routine labs and treat with Dilaudid and Zofran as first-line medication. Disposition likely discharge once her headache resolves assuming normal work-up otherwise.. 15:17 ED course: CT scan of the head is negative and laboratory values are all within normal sp3 limits. Patient's headache is now completely resolved with medications that were given. We will safely discharge her home at this time with PCP/neurology follow-up as needed.. 01/09 14:05 Order name: CBC with Diff; Complete Time: 15:17 sp3 01/09 14:05 Order name: CMP; Complete Time: 15:17 sp3 01/09 14:05 Order name: CT Head Brain wo Cont; Complete Time: 15:17 sp3 01/09 14:05 Order name: IV Saline Lock; Complete Time: 14:27 sp3 01/09 14:05 Order name: Labs collected and sent; Complete Time: 14:27 sp3 Administered Medications: 14:32 Drug: HYDROmorphone IVP 1 mg Route: IVP; Site: left antecubital; ld1 14:32 Drug: Ondansetron IVP 4 mg Route: IVP; Site: left antecubital; ld1 Disposition Summary: 01/09/23 15:18 Discharge Ordered Location: Home sp3 Condition: Stable sp3 Diagnosis - Migraine headache sp3 Followup: sp3 - With: Private Physician - When: - Reason: If symptoms return, Continuance of care Discharge Instructions: - Discharge Summary Sheet sp3 - Migraine Headache sp3 Forms: - Medication Reconciliation Form sp3 - Thank You Letter sp3 - Antibiotic Education sp3 - Prescription Opioid Use sp3 - [email or web address] sp3 Signatures: Dispatcher [employer] EDKathy Armstrong RN RN ld1 Bhavana Brooks MD MD sp3 Luca Ortega RN RN os
--- NOTE | 2023-01-09 15:19 | ER ---
Nurse's Notes [facility] Name: Alda Maldonado Age: 52 yrs Sex: Female : 1970 Arrival Date: 01/09/2023 Time: 13:43 Bed 17 Private MD: Diagnosis: Migraine headache Presentation: 01/09 13:51 Chief complaint: Patient states: Patient c/o FLOWER and pain around the eyes. Coronavirus os screen: Client denies travel out of the [place] in the last 14 days. At this time, the client does not indicate any symptoms associated with coronavirus-19. Ebola Screen: Patient denies travel to an Ebola-affected area in the 21 days before illness onset. Initial Sepsis Screen: Does the patient meet any 2 criteria? No. Patient's initial sepsis screen is negative. Does the patient have a suspected source of infection? No. Patient's initial sepsis screen is negative. Risk Assessment: Do you want to hurt yourself or someone else? Patient reports no desire to harm self or others. Onset of symptoms was January 05, 2023. 13:51 Method Of Arrival: Ambulatory os 13:51 Acuity: SHELDON 3 os Triage Assessment: 13:55 Headache History: The patient has had previous headaches and this one is similar to os previous episodes, and this one is more severe than previous episodes. General: Appears in no apparent distress. uncomfortable, Behavior is calm, cooperative, appropriate for age. Pain: Pain currently is 8 out of 10 on a pain scale. Pain began 2-3 days ago. Also complains of no other associated symptoms. Neuro: No deficits noted. Cardiovascular: Rhythm is sinus tachycardia. Respiratory: No deficits noted. Historical: - PMHx: 13:54 Migraines; os - Immunization history:: Adult Immunizations up to date. - Social history:: Smoking status: Patient denies any tobacco usage or history of. Screenin:33 [facility] ED Fall Risk Assessment (Adult) History of falling in the last 3 months, ld1 including since admission No falls in past 3 months (0 pts). Abuse screen: Denies threats or abuse. Denies injuries from another. Nutritional screening: No deficits noted. Tuberculosis screening: No symptoms or risk factors identified. Assessment: 14:33 General: Appears in no apparent distress. uncomfortable, Behavior is calm, cooperative, ld1 appropriate for age. Pain: Complains of pain in scalp Pain does not radiate. Pain currently is 10 out of 10 on a pain scale. Quality of pain is described as throbbing, Pain began suddenly. Neuro: Level of Consciousness is awake, alert, obeys commands, Oriented to person, place, time, situation. Cardiovascular: Capillary refill < 3 seconds Patient's skin is warm and dry. Respiratory: Airway is patent Respiratory effort is even, unlabored. GI: Abdomen is flat, non-distended. : No signs and/or symptoms were reported regarding the genitourinary system. EENT: No signs and/or symptoms were reported regarding the EENT system. Derm: No signs and/or symptoms reported regarding the dermatologic system. Musculoskeletal: No signs and/or symptoms reported regarding the musculoskeletal system. 15:32 Reassessment: Patient appears in no apparent distress at this time. No changes from ld1 previously documented assessment. Patient and/or family updated on plan of care and expected duration. Pain level reassessed. Patient is alert, oriented x 3, equal unlabored respirations, skin warm/dry/pink. Patient denies pain at this time. Patient states feeling better. Patient states symptoms have improved. Vital Signs: 13:51 BP 162 / 112; Pulse 104; Resp 16; Temp 98.4; Pulse Ox 100% on R/A; Weight 62.14 kg; os 14:33 BP 152 / 92; Pulse 106; Resp 18; Pulse Ox 98% on R/A; Pain 10/10; ld1 15:32 BP 149 / 86; Pulse 95; Resp 18; Pulse Ox 100% on R/A; Pain 0/10; ld1 14:33 Pain Scale: Adult ld1 15:32 Pain Scale: Adult ld1 ED Course: 13:47 Patient arrived in ED. im 13:48 Bhavana Brooks MD is Attending Physician. sp3 13:54 Triage completed. os 14:16 CT Head Brain wo Cont In Process Unspecified. EDMS 14:27 Kathy Zuleta, CHRIS is Primary Nurse. ld1 14:27 Inserted saline lock: 20 gauge in left antecubital area, using aseptic technique. aw1 14:27 Initial lab(s) drawn, by me, sent to lab. aw1 14:33 No provider procedures requiring assistance completed. ld1 14:33 Patient has correct armband on for positive identification. Placed in gown. Bed in low ld1 position. Call light in reach. Side rails up X2. monitoring tech on. Pulse ox on. NIBP on. Door closed. Noise minimized. Warm blanket given. 15:32 IV discontinued, intact, bleeding controlled, No redness/swelling at site. ld1 Administered Medications: 14:32 Drug: HYDROmorphone IVP 1 mg Route: IVP; Site: left antecubital; ld1 14:32 Drug: Ondansetron IVP 4 mg Route: IVP; Site: left antecubital; ld1 Medication: 14:33 VIS not applicable for this client. ld1 Outcome: 15:18 Discharge ordered by . sp3 15:32 Discharged to home ambulatory. ld1 15:32 Condition: stable 15:32 Discharge instructions given to patient, family, Instructed on discharge instructions, follow up and referral plans. Demonstrated understanding of instructions, follow-up care. 15:33 Patient left the ED. ld1 Signatures: Dispatcher [employer] EDMS Kathy Zuleta, RN RN ld1 Bhavana Brooks MD MD sp3 Luca Ortega RN RN os Lorene Blas Alyssa aw1
[2023-01-09 16:00] VITALS: TEMP 98.4
[2023-01-09 16:08] VITALS: BP 149/86; O2SAT 100
== END 2023-01-09 15:33 | disposition home or self-care (01) ==
LOC: ER 13:43
DX: G43.009 Migraine without aura, not intractable, without status migrainosus (principal)
CPT/HCPCS: 36415; 70450; 80053; 85025; 96374; 96375; 99285; J1170; J2405

== ENCOUNTER 2025-05-04 20:20 | Emergency (ER) | payer OTHER ==
[2025-05-04 20:52] LABS: Absolute Lymphocytes (CBC) 3.3 K/uL (0.7-4.9); Hematocrit 40.4 % (36.0-45.0); Hemoglobin 13.4 g/dL (12.0-15.0); MCH 29.1 pg (27.0-35.0); MCHC 33.2 g/dL (32.0-36.0); MCV 87.6 fL (80-100); MPV 8.1 fL (7.6-11.3); Nucleated RBC Absolute Count 0.0 (0-0); Nucleated Red Blood Cells % 0.1 % (0-0); RBC Red Blood Cell Count 4.61 M/uL (3.86-4.86); White Blood Count 8.90 thou/uL (4.3-10.9)
[2025-05-04 20:58] LABS: PT Prothrombin Time 11.4 SECONDS (10-13.0); Protime INR 1.01
[2025-05-04 21:16] LABS: ALT/SGPT 22 U/L (13-56); AST/SGOT 15 U/L (15-37); Albumin 3.9 g/dL (3.4-5.0); Albumin/Globulin Ratio 1.1 (1.1-1.8); Alkaline Phosphatase 106 U/L (45-117); Anion Gap 9.6 mEq/L (5.0-15.0); BUN Blood Urea Nitrogen 14 mg/dL (7-18); Globulin 3.4 g/dL (2.3-3.5); Glucose Level 98 mg/dL (74-106); Magnesium 2.5 mg/dL (1.6-2.4); NT PRO-BNP 32 pg/mL (<125); Potassium 3.6 mEq/L (3.5-5.1); Troponin High Sensitivity 3.5 pg/mL (<58.9)
[2025-05-04 21:17] LABS: Bilirubin Indirect, Calculated 0.3 mg/dL (0.2-0.8)
[2025-05-04] MEDS ORDERED: NA CHLORIDE 0.9% 500 ML ONE (21:26)
[2025-05-04 21:55] LABS: Thyroid Stimulating Hormone 0.96 uIU/mL (0.358-3.740)
--- NOTE | 2025-05-04 22:20 | RAD REPORT ---
EXAMINATION: CTA CHEST PE CLINICAL INDICATION: CHEST PAIN TECHNIQUE: This examination was performed according to an angiographic protocol with 3D post-processi ng. This involves 3D reconstructions, MIPs, volume rendered images and/or shaded surface rendering. One or more of the following dose reduction techniques were used: Automated exposure control, adjustm ent of the mA and/or kV according to patient size, and/or iterative reconstruction. Unless otherwise specified, incidental findings do not require dedicated imaging follow-up. COMPARISON: No prior exam. FINDINGS: PULMONARY ARTERIES: Normal caliber. No evidence of pulmonary emboli to the subsegmental level. THORACIC AORTA: Normal caliber and configuration. LUNGS: No evidence of airspace or interstitial process. No nodules. PLEURA: No pleural effusion. No pneumothorax. MEDIASTINUM AND LYMPH NODES: No mediastinal mass or fluid collection. Normal size mediastinal, hilar, and axillary lymph nodes. OSSEOUS STRUCTURES AND CHEST WALL: Intact. UPPER ABDOMEN: No significant abnormalities. Small hiatal hernia. IMPRESSION: No evidence of pulmonary emboli to the subsegmental level.
--- NOTE | 2025-05-04 23:45 | EDPHYS ---
Physician Documentation [facility] Name: Alda Bronson Age: 55 yrs Sex: Female : 1970 Arrival Date: 05/04/2025 Time: 20:20 Bed 18 Private MD: ED Physician Ba Leroy HPI: 05/04 20:32 This 55 yrs old Female presents to ER via Unassigned with complaints of Chest sp4 Pain - STARTED YESTERDAY. 05/05 05:36 55-year-old female presents with complaint of acute mild stabbing midsternal to sp4 left-sided chest pain without physical exertion. Patient reports no previous past medical history, denies history of coronary artery disease, denies medications on daily basis, does report dietary vitamins, at this time pain is resolved. Chest pain started yesterday and was intermittent, patient has history of myocardial infarction at the age of 80.. 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 - Infectious Disease History:: Denies. - Social history:: Smoking status: Patient denies any tobacco usage or history of. - Family history:: not pertinent. ROS: 05/05 05:36 Constitutional: Negative for fever, chills, and weight loss, positive intermittent sp4 midsternal chest pain All other systems are negative, Exam: 05:36 Constitutional: This is a well developed, well nourished patient who is awake, alert, sp4 and in no acute distress. Head/Face: Normocephalic, atraumatic. Eyes: Pupils equal round and reactive to light, extra-ocular motions intact. Lids and lashes normal. Conjunctiva and sclera are not injected. Cornea within normal limits. Periorbital areas with no swelling, redness, or edema. ENT: Nares patent. No nasal discharge, no septal abnormalities noted. Tympanic membranes are normal and external auditory canals are clear. Oropharynx with no redness, swelling, or masses, exudates, or evidence of obstruction, uvula midline. Mucous membranes moist. Neck: Trachea midline, no thyromegaly or masses palpated, and no cervical lymphadenopathy. Supple, full range of motion without nuchal rigidity, or vertebral point tenderness. Chest/axilla: Normal chest wall appearance and motion. Nontender with no deformity. No lesions are appreciated. Cardiovascular: Regular rate and rhythm with a normal S1 and S2. No gallops, murmurs, or rubs. No pulse deficits. Respiratory: Lungs have equal breath sounds bilaterally, clear to auscultation and percussion. No rales, rhonchi or wheezes noted. No increased work of breathing, no retractions or nasal flaring. Abdomen/GI: Soft, with normal bowel sounds. No distension or tympany. No guarding or rebound. No evidence of tenderness throughout. Back: No spinal tenderness. No costovertebral tenderness. Skin: Warm, dry with normal turgor. Normal color with no rashes, no lesions, and no evidence of cellulitis. MS/ Extremity: Pulses equal, no cyanosis. Neurovascular intact. Full, normal range of motion. Neuro: Awake and alert, GCS 15, oriented to person, place, time, and situation. Cranial nerves II-XII grossly intact. Motor strength 5/5 in all extremities. Sensory grossly intact. Psych: Awake, alert, with orientation to person, place and time. Behavior, mood, and affect are within normal limits 05:36 ECG was reviewed by the Attending Physician. EKG at 2035 normal sinus rhythm rate 75 normal EKG Vital Signs: 05/04 20:25 BP 187 / 97; Pulse 82; Resp 18 S; Temp 97.6(O); Pulse Ox 99% on R/A; Weight 58.97 kg; ha1 Height 4 ft. 11 in. ; Pain 4/10; 21:25 BP 133 / 67; Pulse 99; Resp 20; Pulse Ox 99% on R/A; tb4 22:38 BP 156 / 89; Pulse 77; Resp 18; Pulse Ox 97% on R/A; Pain 0/10; tb4 23:09 BP 148 / 90; Pulse 71; Resp 18; Pulse Ox 97% on R/A; tb4 23:55 BP 154 / 83; Pulse 71; Resp 19; Pulse Ox 100% on R/A; Pain 0/10; tb4 20:25 Body Mass Index 26.26 (58.97 kg, 149.86 cm) ha1 20:25 Pain Scale: Adult ha1 22:38 Pain Scale: Adult tb4 23:55 Pain Scale: Adult tb4 Flo Coma Score: 05/05 05:36 Eye Response: spontaneous(4). Verbal Response: oriented(5). Motor Response: obeys sp4 commands(6). Total: 15. MDM: 05/04 21:20 Medical Screening Exam initiated sp4 05/05 05:41 Differential diagnosis: acute myocardial infarction, acute pericarditis, anxiety, sp4 coronary artery disease chest wall pain, congestive heart failure costochondritis, esophagitis, gastritis. HEART Score: History: Slightly Suspicious (0), ECG: Normal (0), Age: > 45 and < 65 years (1), Risk Factors: No Risk Factors Known (0), Troponin: < or = 1 x Normal Limit (0), Total Score = 1. The patient was not given aspirin in the Emergency Department. Aspirin not given, patient refused. Data reviewed: vital signs, nurses notes, lab test result(s), EKG, radiologic studies, CT scan. ED course: COMPARISON: No prior exam. FINDINGS: PULMONARY ARTERIES: Normal caliber. No evidence of pulmonary emboli to the subsegmental level. THORACIC AORTA: Normal caliber and configuration. LUNGS: No evidence of airspace or interstitial process. No nodules. PLEURA: No pleural effusion. No pneumothorax. MEDIASTINUM AND LYMPH NODES: No mediastinal mass or fluid collection. Normal size mediastinal, hilar, and axillary lymph nodes. OSSEOUS STRUCTURES AND CHEST WALL: Intact. UPPER ABDOMEN: No significant abnormalities. Small hiatal hernia. IMPRESSION: No evidence of pulmonary emboli to the subsegmental leve. 05/04 20:33 Order name: Basic Metabolic Panel; Complete Time: 23:32 sp4 05/04 20:33 Order name: CBC with Diff; Complete Time: 23:32 sp4 05/04 20:33 Order name: LFT's; Complete Time: 23:32 sp4 05/04 20:33 Order name: Magnesium; Complete Time: 23:32 sp4 05/04 20:33 Order name: NT PRO-BNP; Complete Time: 23:32 sp4 05/04 20:33 Order name: PT-INR; Complete Time: 23:32 sp4 05/04 20:33 Order name: Troponin HS; Complete Time: 23:32 sp4 05/04 21:19 Order name: TSH; Complete Time: 23:32 sp4 05/04 21:19 Order name: T4 Free; Complete Time: 23:32 sp4 05/04 21:19 Order name: CT Chest For PE Angio; Complete Time: 23:32 sp4 05/04 20:33 Order name: Cardiac monitoring; Complete Time: 20:43 sp4 05/04 20:33 Order name: EKG - Nurse/Tech; Complete Time: 20:43 sp4 05/04 20:33 Order name: IV Saline Lock; Complete Time: 20:48 sp4 05/04 20:33 Order name: Labs collected and sent; Complete Time: 20:48 sp4 05/04 20:33 Order name: O2 Per Protocol; Complete Time: 20:43 sp4 05/04 20:33 Order name: O2 Sat Monitoring; Complete Time: 20:43 sp4 EC/30 20:36 Rate is 75 beats/min. Rhythm is regular, Normal Sinus Rhythm. QRS [place] [employer] is Normal. CT sp4 interval is normal. QRS interval is normal. QT interval is normal. No Q waves. T waves are Normal. No ST changes noted. Clinical impression: Normal ECG. Interpreted by me. Reviewed by me. Administered Medications: 21:37 Drug: NS 0.9% IV 500 ml 500 ml IV at 1 bolus once; to be given as a bolus over 30 tb4 minutes Volume: 500 ml; Route: IV; Rate: 1 bolus; Site: right antecubital; 23:09 Follow up: Response: No adverse reaction; IV Status: Completed infusion tb4 Disposition: 05/05 05:43 Chart complete. sp4 Disposition Summary: 05/04/25 23:45 Discharge Ordered Notes: Location: Home sp4 Problem: new sp4 Symptoms: have improved sp4 Condition: Stable sp4 Diagnosis - Acute Atypical Chest pain sp4 - Elevated blood pressure without diagonosis of hypertension sp4 Followup: sp4 - With: Geraldo Mcfarland DO - When: 7 - 10 days - Reason: Recheck today's complaints Followup: sp4 - With: Buzz Marino MD - When: 7 - 10 days - Reason: Recheck today's complaints Discharge Instructions: - Discharge Summary Sheet sp4 - Nonspecific Chest Pain, Adult, [id number] sp4 Forms: - Patient Portal Instructions sp4 Signatures: Dispatcher [employer] EDMS Caitlyn Herndon RN RN ha1 Ba Leroy MD MD sp4 Martha Sequeira RN RN tb4 Corrections: (The following items were deleted from the chart) 05/04 20:34 20:34 Chest Single View+RAD.RAD.BRZ ordered. EDVA EDMS 20:55 20:48 PSHx: None; ha1 ha1
--- NOTE | 2025-05-04 23:45 | ER ---
Nurse's Notes [facility] Name: Alda Bronson Age: 55 yrs Sex: Female : 1970 Arrival Date: 05/04/2025 Time: 20:20 Bed 18 Private MD: Diagnosis: Acute Atypical Chest pain ;Elevated blood pressure without diagonosis of hypertension Presentation: 05/04 20:25 Chief complaint: Patient states: MID CHEST PAIN SINCE YESTERDAY RADIATES TO THE BACK. ha1 20:25 Coronavirus screen: Client denies travel out of the [place] in the last 14 days. Ebola ha1 Screen: No symptoms or risks identified at this time. Initial Sepsis Screen: Does the patient meet any 2 criteria? No. Patient's initial sepsis screen is negative. Does the patient have a suspected source of infection? No. Patient's initial sepsis screen is negative. Risk Assessment: Do you want to hurt yourself or someone else? Patient reports no desire to harm self or others. Onset of symptoms was May 04, 2025. 20:25 Method Of Arrival: Ambulatory ha1 20:25 Acuity: SHELDON 2 ha1 Triage Assessment: 20:48 General: Appears comfortable, Behavior is calm, cooperative. Pain: Complains of pain in ha1 chest Pain radiates to back Pain currently is 4 out of 10 on a pain scale. Quality of pain is described as aching. Neuro: Level of Consciousness is awake, alert, obeys commands, Oriented to person, place, time, situation. Cardiovascular: Reports chest pain, Capillary refill < 3 seconds Patient's skin is warm and dry. Respiratory: Airway is patent Respiratory effort is even, unlabored, Respiratory pattern is regular, symmetrical. GI: No signs and/or symptoms were reported involving the gastrointestinal system. : No signs and/or symptoms were reported regarding the genitourinary system. Derm: Skin is pink, warm \T\ dry. Musculoskeletal: Circulation, motion, and sensation intact. Range of motion: intact in all extremities. CREDIT COLLECTION ASSOCIATE: 05/05 00:27 Not tb4 Historical: - Allergies: 05/04 20:48 No Known Allergies; ha1 - PMHx: 20:48 Migraines; ha1 - PSHx: 20:48 section; Appendectomy; PARTIAL HYSTERECTOMY; ha1 - Immunization history:: Adult Immunizations up to date. - Infectious Disease History:: Denies. - Social history:: Smoking status: Patient denies any tobacco usage or history of. - Family history:: not pertinent. Screenin:25 [facility] ED Fall Risk Assessment (Adult) History of falling in the last 3 months, tb4 including since admission No falls in past 3 months (0 pts) Confusion or Disorientation No (0 pts) Intoxicated or Sedated No (0 pts) Impaired Gait No (0 pts) Mobility Assist Device Used No (0 pt) Altered Elimination No (0 pt) Score/Fall Risk Level 0 - 2 = Low Risk Maintained a safe environment. Abuse screen: Denies threats or abuse. Denies injuries from another. Nutritional screening: No deficits noted. Tuberculosis screening: No symptoms or risk factors identified. Assessment: 22:22 General: Appears comfortable, Behavior is calm, cooperative. Pain: Complains of pain in tb4 chest Pain does not radiate. Pain currently is 3 out of 10 on a pain scale. Quality of pain is described as aching, Pain began gradually, 1 day ago. Is intermittent. Neuro: Level of Consciousness is awake, alert, obeys commands, Oriented to person, place, time, situation, Moves all extremities. Full function Gait is steady, Speech is normal, Facial symmetry appears normal. Cardiovascular: Patient's skin is warm and dry. Rhythm is regular Chest pain is described as mild. Cardiovascular: Reports chest pain, Heart tones present. Respiratory: Airway is patent Respiratory effort is even, unlabored, Respiratory pattern is regular, symmetrical, Breath sounds are clear bilaterally. GI: No deficits noted. No signs and/or symptoms were reported involving the gastrointestinal system. : No deficits noted. No signs and/or symptoms were reported regarding the genitourinary system. EENT: No deficits noted. No signs and/or symptoms were reported regarding the EENT system. Derm: No deficits noted. No signs and/or symptoms reported regarding the dermatologic system. Skin is intact, is healthy with good turgor, Skin is dry, Skin is normal, Skin temperature is warm. Musculoskeletal: Circulation, motion, and sensation intact. Range of motion: intact in all extremities. Vital Signs: 20:25 BP 187 / 97; Pulse 82; Resp 18 S; Temp 97.6(O); Pulse Ox 99% on R/A; Weight 58.97 kg; ha1 Height 4 ft. 11 in. ; Pain 4/10; 21:25 BP 133 / 67; Pulse 99; Resp 20; Pulse Ox 99% on R/A; tb4 22:38 BP 156 / 89; Pulse 77; Resp 18; Pulse Ox 97% on R/A; Pain 0/10; tb4 23:09 BP 148 / 90; Pulse 71; Resp 18; Pulse Ox 97% on R/A; tb4 23:55 BP 154 / 83; Pulse 71; Resp 19; Pulse Ox 100% on R/A; Pain 0/10; tb4 20:25 Body Mass Index 26.26 (58.97 kg, 149.86 cm) ha1 20:25 Pain Scale: Adult ha1 22:38 Pain Scale: Adult tb4 23:55 Pain Scale: Adult tb4 Dennard Coma Score: 05/05 05:36 Eye Response: spontaneous(4). Verbal Response: oriented(5). Motor Response: obeys sp4 commands(6). Total: 15. ED Course: 05/04 20:19 Inserted saline lock: 22 gauge in right antecubital area, using aseptic technique. tb4 Blood collected. Flushed with 10 mL NS. 20:25 Patient arrived in ED. sj2 20:32 Ba Leroy MD is Attending Physician. sp4 20:47 Triage completed. ha1 21:25 Patient has correct armband on for positive identification. Bed in low position. Call tb4 light in reach. Side rails up X 1. Client placed on continuous cardiac and pulse oximetry monitoring. NIBP monitoring applied. school lunch monitor on. Pulse ox on. Door closed. Lights dimmed. Warm blanket given. 21:25 No provider procedures requiring assistance completed. Initial lab(s) drawn, by ED tb4 staff, sent to lab. EKG done, by training technician. reviewed by Ba Leroy MD CT Scan. Patient maintains SpO2 saturation greater than 95% on room air. 22:03 CT Chest For PE Angio In Process Unspecified. EDMS 23:43 Geraldo Mcfarland DO is Referral Physician. sp4 23:43 Buzz Marino MD is Referral Physician. sp4 23:55 Arm band placed on left wrist. tb4 23:56 Provided Education on: Follow up with primary care . tb4 05/05 00:26 IV discontinued, intact, bleeding controlled, No redness/swelling at site. Pressure tb4 dressing applied. Administered Medications: 05/04 21:37 Drug: NS 0.9% IV 500 ml 500 ml IV at 1 bolus once; to be given as a bolus over 30 tb4 minutes Volume: 500 ml; Route: IV; Rate: 1 bolus; Site: right antecubital; 23:09 Follow up: Response: No adverse reaction; IV Status: Completed infusion tb4 Medication: 22:22 VIS not applicable for this client. tb4 Outcome: 23:45 Discharge ordered by . sp4 23:56 Discharged to home ambulatory, tb4 23:56 Condition: stable 23:56 Discharge instructions given to patient, Instructed on discharge instructions, follow up and referral plans. Demonstrated understanding of instructions, follow-up care, 05/05 00:27 Patient left the ED. tb4 Signatures: Dispatcher [employer] EDCaitlyn Perla RN RN ha1 Ba Leroy MD MD sp4 Lucille Ramírez 2 Martha Sequeira, CHRIS RN tb4 Corrections: (The following items were deleted from the chart) 05/04 20:55 20:48 PSHx: None; ha1 ha1
[2025-05-05 00:33] VITALS: TEMP 97.6
[2025-05-05 00:38] VITALS: BP 154/83; O2SAT 100
== END 2025-05-05 00:27 | disposition home or self-care (01) ==
LOC: ER 20:20
DX: R07.89 Other chest pain (principal); R03.0 Elevated blood-pressure reading, without diagnosis of hypertension
CPT/HCPCS: 96361; 93005; 85025; 80048; 36415; 83735; 85610; 80076; 84443; 84484; 84439; 83880; 71275; 96360; 99285; Q9967; J7040